=== PATIENT | female | born 1995 | race Caucasian/White ===

== ENCOUNTER 2016-10-01 15:14 | Emergency (ER) | payer OTHER ==
[2016-10-01] MEDS ORDERED: ACETAMINOPHEN 325 MG TABLET PO STA (16:16)
[2016-10-01] MEDS ORDERED: ACETAMINOPHEN 325 MG TABLET PO ONE (16:18)
[2016-10-01] MEDS ORDERED: RHO(D) IMMUNE GLOBULIN 300 MCG SYRINGE IM ONE (17:54)
== END 2016-10-01 19:17 | disposition home or self-care (01) ==
DX: O03.9 Complete or unspecified spontaneous abortion without complication (principal)
CPT/HCPCS: 36415; 76801; 76817; 84702; 86900; 86901; 96372; 99283; 99284; A9270

== ENCOUNTER 2016-11-08 01:33 | Emergency (ER) | payer OTHER | END 2016-11-08 03:01 | disposition home or self-care (01) | DX: S09.90XA Unspecified injury of head, initial encounter (principal); W17.89XA Other fall from one level to another, initial encounter; Y92.019 Unspecified place in single-family (private) house as the place of occurrence of the external cause ==

== ENCOUNTER 2018-04-26 19:12 | Emergency (ER) | payer OTHER ==
[2018-04-26 19:24] VITALS: BP 125/71
[2018-04-26] MEDS ORDERED: HYDROcod/ACET 5/325 Prepack 4 PO STA (20:10)
[2018-04-26] MEDS ORDERED: predniSONE 20 MG TABLET PO STA (20:10)
--- NOTE | 2018-04-26 20:12 | ED Physician Documentation ---
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 She has had back pain before but this is worse. It radiates with a burning down the left leg into the thigh but not further. She denies weakness, numbness, or tingling in that leg or the saddle area. No fevers. 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) - Past Surgical History Past Surgical History: Yes General: Appendectomy - Present Medications Home Medications: Ambulatory Orders Medication Instructions Recorded Confirmed Hydrocodone/Acetaminophen 1 - 2 each PO Q6H PRN #14 tablet 04/26/18 [Hydrocodon-Acetaminophen 5-325] predniSONE [Deltasone] 20 mg PO [id number] #21 tab 04/26/18 - Allergies Allergies/Adverse Reactions: Allergies Allergy/AdvReac Type Severity Reaction Status Date / Time No Known Drug Allergies Allergy Verified 10/01/16 15:26 - Social History Does the pt smoke?: No Smoking Status: Never smoker Does the pt drink ETOH?: No Does the pt have substance abuse?: Yes - Immunizations Immunizations are current?: Yes - POLST Patient has POLST: No PD ED PE NORMAL - Vitals Vital signs reviewed: Yes - General General: Alert and oriented X 3, No acute distress - Back Back: No CVA TTP, No spinal TTP - Extremities Extremities: Other (She has diminished but not absent sensation over the medial left calf with a diminished but not absent patellar reflex. She has equal Achilles reflexes and is slightly weak in plantarflexion of the left foot.) - Neuro Neuro: Alert and oriented X 3, Normal speech Results - Vitals Vitals: Vital Signs - 24 hr 04/26/18 19:18 Temperature 36.9 C Heart Rate 68 Respiratory 16 Rate Blood Pressure 125/71 O2 Saturation 99 Oxygen O2 Source Room air PD MEDICAL DECISION MAKING - Sepsis Event Vital Signs: Vital Signs - 24 hr 04/26/18 19:18 Temperature 36.9 C Heart Rate 68 Respiratory 16 Rate Blood Pressure 125/71 O2 Saturation 99 Oxygen O2 Source Room air Departure - Departure Disposition: Home, Self Care Clinical Impression: Lumbar radiculopathy Condition: Good Record reviewed to determine appropriate education?: Yes Instructions: ED Sciatica Prescriptions: Hydrocodone/Acetaminophen [Hydrocodon-Acetaminophen 5-325] 1 - 2 each PO Q6H PRN #14 tablet PRN Reason: pain predniSONE [Deltasone] 20 mg PO [id number] #21 tab Comments: [place], consideration for physical therapy. Return for new or worsening symptoms. Do not drink or drive while taking narcotic pain medication. Note that many narcotic pain relievers also contain Tylenol/acetaminophen. Please ensure that your total dose of acetaminophen from all sources does not exceed 3 g (3000 mg) per day. You may get constipated while on this medication. Take a stool softener such as Colace twice a day while you are on it. Also add an [id number] laxative such as senna or MiraLAX on any day that you do not have a bowel movement. If you received a narcotic pain medication or sedative while in the emergency department, do not drive for the next 24 hours. Forms: Activity restrictions
== END 2018-04-26 20:28 | disposition home or self-care (01) ==
LOC: ED 19:12
DX: M54.16 Radiculopathy, lumbar region (principal); X50.0XXA Overexertion from strenuous movement or load, initial encounter; Y99.0 Civilian activity done for income or pay
CPT/HCPCS: 99283; J7512

== ENCOUNTER 2018-08-30 01:46 | Emergency (ER) | payer OTHER ==
[2018-08-30] MEDS ORDERED: SODIUM CHLORIDE 0.9% 1,000 ML IV ONE (01:56)
[2018-08-30] MEDS ORDERED: ACETAMINOPHEN 500 MG TABLET PO STA (01:56)
[2018-08-30 02:21] LABS: BASOPHILS # (AUTO) 0.1 10^3/uL (0.0-0.1); BASOPHILS % (AUTO) 0.5 %; EOSINOPHILS # (AUTO) 0.1 10^3/uL (0.0-0.7); EOSINOPHILS % (AUTO) 0.8 %; HGB - HEMOGLOBIN 12.7 g/dL (12.0-16.0); LYMPHOCYTES % (AUTO) 17.5 %; MEAN CORPUSCULAR HEMOGLOBIN 30.7 pg (27.0-31.0); MEAN CORPUSCULAR HGB CONC 33.6 g/dL (32.0-36.0); MEAN CORPUSCULAR VOLUME 91.3 fL (81.0-99.0); MEAN PLATELET VOLUME 8.6 fL (7.9-10.8); MONOCYTES # (AUTO) 0.5 10^3/uL (0.0-1.0); MONOCYTES % (AUTO) 4.1 %; NEUTROPHILS # (AUTO) 8.6 10^3/uL (1.5-6.6); NEUTROPHILS % (AUTO) 77.1 %; PLT - PLATELET COUNT 223 10^3/uL (130-450); RED BLOOD COUNT 4.13 10^6/uL (4.20-5.40); WHITE BLOOD COUNT 11.1 x10^3/uL (4.8-10.8)
[2018-08-30 02:29] LABS: BILIRUBIN,URINE NEGATIVE (NEGATIVE); GLUCOSE, URINE (UA) NEGATIVE (NEGATIVE); KETONES,URINE (UA) NEGATIVE (NEGATIVE); LEUKOCYTE ESTERASE, URINE TRACE (NEGATIVE); NITRITE,URINE NEGATIVE (NEGATIVE); OCCULT BLOOD,URINE NEGATIVE (NEGATIVE); PROTEIN,URINE NEGATIVE (NEGATIVE); UROBILINOGEN,URINE 0.2 (NORMAL) E.U./dL (NORMAL)
[2018-08-30 02:33] LABS: CLARITY,URINE CLEAR (CLEAR)
[2018-08-30 02:33] LABS: ALBUMIN 3.3 g/dL (3.2-5.5); BILIRUBIN,TOTAL 0.6 mg/dL (0.2-1.0); CALCIUM 8.7 mg/dL (8.5-10.3); CREATININE 0.6 mg/dL (0.4-1.0); TOTAL PROTEIN 6.7 g/dL (6.7-8.2)
[2018-08-30 02:39] LABS: RBC,URINE 0-5 /HPF (0-5); SQUAMOUS EPITHELIAL CELL,UR MOD Squamous (<= Few)
[2018-08-30 02:40] LABS: BACTERIA,URINE Rare /HPF (None Seen)
--- NOTE | 2018-08-30 03:14 | ED Physician Documentation ---
History of Present Illness - Stated complaint Stated Complaint: FEMALE ,17W - Chief complaint Chief Complaint: Abd Pain - Additonal information Additional information: 23-year-old female presents the emergency department with lower abdominal cramping. The patient reports being 17 weeks , the patient's had a normal ultrasound showing an intrauterine . This evening the patient reports lower abdominal cramping which she feels is similar to contractions. Presently the cramping has greatly improved. The patient is denying vaginal bleeding or vaginal discharge or a isaac of fluid. The patient denies any focal area of abdominal pain. Presently her symptoms are much improved. No other associated symptoms Review of Systems Constitutional: denies: Fever, Chills Eyes: denies: Discharge Ears: denies: Ear pain Throat: denies: Sore throat Cardiac: denies: Chest pain / pressure Respiratory: denies: Dyspnea, Cough GI: reports: Abdominal Pain. 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) - Past Surgical History Past Surgical History: Yes General: Appendectomy - Present Medications Home Medications: Ambulatory Orders Medication Instructions Recorded Confirmed Nitrofurantoin Monohyd/M-Cryst 100 mg PO BID #10 capsule 08/04/18 [Macrobid 100 mg Capsule] Pnv95/Ferrous Fumarate/FA 1 each PO 08/04/18 [ Tablet] - Allergies Allergies/Adverse Reactions: Allergies Allergy/AdvReac Type Severity Reaction Status Date / Time No Known Drug Allergies Allergy Verified 10/01/16 15:26 - Social History Does the pt smoke?: No Smoking Status: Never smoker Does the pt drink ETOH?: No Does the pt have substance abuse?: Yes - Immunizations Immunizations are current?: Yes - POLST Patient has POLST: No PD ED PE NORMAL - General General: Alert and oriented X 3, No acute distress - HEENT HEENT: Atraumatic, PERRL, EOMI, Ears normal - Neck Neck: Supple, no meningeal sign - Cardiac Cardiac: RRR, Strong equal pulses - Respiratory Respiratory: No respiratory distress - Abdomen Abdomen: Soft, Non tender, Non distended - Derm Derm: Normal color - Extremities Extremities: No deformity - Neuro Neuro: Alert and oriented X 3, Normal speech - Psych Psych: Normal affect Results - Vitals Vitals: Vital Signs - 24 hr 08/30/18 01:50 Temperature 36.3 C L Heart Rate 78 Respiratory 13 Rate Blood Pressure 106/63 O2 Saturation 100 Oxygen O2 Source Room air - Labs Labs: Laboratory Tests 08/30/18 08/30/18 08/30/18 02:10 02:10 02:24 WBC 11.1 H RBC 4.13 L Hgb 12.7 Hct 37.7 MCV 91.3 MCH 30.7 MCHC 33.6 RDW 14.0 Plt Count 223 MPV 8.6 Neut # (Auto) 8.6 H Lymph # (Auto) 2.0 [place] # (Auto) 0.5 Eos # (Auto) 0.1 Baso # (Auto) 0.1 Absolute Nucleated RBC 0.00 Nucleated RBC % 0.0 Sodium 135 Potassium 3.5 Chloride 104 Carbon Dioxide 21 Anion Gap 10.0 BUN 12 Creatinine 0.6 Estimated GFR (MDRD) 124 Glucose 86 Calcium 8.7 Total Bilirubin 0.6 AST 16 ALT 11 Alkaline Phosphatase 63 Total Protein 6.7 Albumin 3.3 Globulin 3.4 Albumin/Globulin Ratio 1.0 Lipase 32 Urine Color YELLOW Urine Clarity CLEAR Urine pH 7.0 Ur Specific [place] 1.025 Urine Protein NEGATIVE Urine Glucose (UA) NEGATIVE Urine Ketones NEGATIVE Urine Occult Blood NEGATIVE Urine Nitrite NEGATIVE Urine Bilirubin NEGATIVE Urine Urobilinogen 0.2 (NORMAL) Ur Leukocyte Esterase TRACE H Urine RBC 0-5 Urine WBC 4-5 Ur Squamous Epith Cells MOD Squamous H Urine Bacteria Rare Ur Microscopic Review INDICATED Urine Culture Comments NOT INDICATED PD MEDICAL DECISION MAKING - ED course ED course: The patient has no focal area of abdominal pain to suggest appendicitis, diverticulitis or acute cholecystitis or pyelonephritis. The patient's lab work does not show any significant abnormality. The patient is having no vaginal bleeding or discharge at this point. The patient had a reassuring heart tones which were in the 140s. The patient's symptoms are under much better control. 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 I discussed warning signs and recommended returning for any worsening or any concerns. Departure - Departure Disposition: 01 Home, Self Care Clinical Impression: Abdominal cramping affecting Condition: Good Instructions: ED Abdominal Pain Unkn Cause Follow-Up: LEVI King [Provider Group] - Within 3 Days Comments: Please return to the emergency department for worsening symptoms or any concerns
[2018-08-30 03:18] VITALS: BP 112/68
== END 2018-08-30 03:19 | disposition home or self-care (01) ==
LOC: ED 01:46
DX: O26.892 Other specified pregnancy related conditions, second trimester (principal); Z3A.17 17 weeks gestation of pregnancy; R10.30 Lower abdominal pain, unspecified
CPT/HCPCS: 36415; 80053; 81001; 83690; 85025; 96360; 99283; A9270; 81003; 87086

== ENCOUNTER 2019-04-13 09:57 | Inpatient (IN) | payer OTHER ==
[2019-04-13 10:14] LABS: BILIRUBIN,URINE NEGATIVE (NEGATIVE); GLUCOSE, URINE (UA) NEGATIVE (NEGATIVE); KETONES,URINE (UA) NEGATIVE (NEGATIVE); LEUKOCYTE ESTERASE, URINE SMALL (NEGATIVE); NITRITE,URINE NEGATIVE (NEGATIVE); OCCULT BLOOD,URINE NEGATIVE (NEGATIVE); PROTEIN,URINE NEGATIVE (NEGATIVE); UROBILINOGEN,URINE 0.2 (NORMAL) E.U./dL (NORMAL)
[2019-04-13 10:19] LABS: HCG UR QUAL NEGATIVE
[2019-04-13 10:19] LABS: CLARITY,URINE HAZY (CLEAR)
[2019-04-13 10:29] LABS: RBC,URINE 0-5 /HPF (0-5); SQUAMOUS EPITHELIAL CELL,UR MOD Squamous (<= Few)
[2019-04-13 10:30] LABS: BACTERIA,URINE Few /HPF (None Seen)
[2019-04-13 13:09] LABS: BASOPHILS # (AUTO) 0.1 10^3/uL (0.0-0.1); BASOPHILS % (AUTO) 0.3 %; EOSINOPHILS # (AUTO) 0.1 10^3/uL (0.0-0.7); EOSINOPHILS % (AUTO) 0.4 %; HGB - HEMOGLOBIN 13.6 g/dL (12.0-16.0); LYMPHOCYTES # (AUTO) 0.5 10^3/uL (1.5-3.5); LYMPHOCYTES % (AUTO) 2.7 %; MEAN CORPUSCULAR HEMOGLOBIN 30.6 pg (27.0-31.0); MEAN CORPUSCULAR HGB CONC 33.8 g/dL (32.0-36.0); MEAN CORPUSCULAR VOLUME 90.3 fL (81.0-99.0); MEAN PLATELET VOLUME 9.9 fL (7.9-10.8); MONOCYTES # (AUTO) 0.6 10^3/uL (0.0-1.0); MONOCYTES % (AUTO) 3.1 %; NEUTROPHILS # (AUTO) 17.6 10^3/uL (1.5-6.6); PLT - PLATELET COUNT 246 10^3/uL (130-450); RED BLOOD COUNT 4.45 10^6/uL (4.20-5.40); RED CELL DISTRIBUTION WIDTH 13.2 % (12.0-15.0); WHITE BLOOD COUNT 18.9 x10^3/uL (4.8-10.8)
[2019-04-13] MEDS ORDERED: SODIUM CHLORIDE 0.9% 1,000 ML IV ONE ×2 (13:43→15:59)
[2019-04-13] MEDS ORDERED: ONDANSETRON 4 MG/2 ML VIAL IVP STA (13:43)
[2019-04-13] MEDS ORDERED: MORPHINE 2 MG/ML CARPUJECT IVP STA ×2 (13:43→16:01)
--- NOTE | 2019-04-13 13:46 | ED Physician Documentation ---
History of Present Illness - Stated complaint Stated Complaint: LOWER ABD PX - Chief complaint Chief Complaint: Abd Pain - Additonal information Additional information: This is a 23-year-old female who presents with abdominal pain fever nausea and vomiting. Patient states that this morning she began having moderate to severe suprapubic pain which radiates to her right flank and her right upper quadrant. She also had some pain with urination. She is nauseated she vomited once. She had an IUD placed 2 weeks ago, this is also the time of her last menstrual period. She states that she had a fever at home to 102 F prior to arrival. S he is sexually active with her only and denies concern for sexual transmitted infection. She has had copious some yellow vaginal discharge, which she was told was normal after IUD placement. She denies any chest pain or shortness of breath. She thinks she has had an appendectomy as a child. 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) - Past Surgical History Past Surgical History: Yes General: Appendectomy - Present Medications Home Medications: Ambulatory Orders Medication Instructions Recorded Confirmed Nitrofurantoin Monohyd/M-Cryst 100 mg PO BID #10 capsule 08/04/18 [Macrobid 100 mg Capsule] Pnv95/Ferrous Fumarate/FA 1 each PO 08/04/18 [ Tablet] - Allergies Allergies/Adverse Reactions: Allergies Allergy/AdvReac Type Severity Reaction Status Date / Time doxycycline AdvReac Intermediate Itching Verified 04/14/19 07:21 - Social History Does the pt smoke?: No Smoking Status: Never smoker Does the pt drink ETOH?: No Does the pt have substance abuse?: Yes - Immunizations Immunizations are current?: Yes - POLST Patient has POLST: No PD ED PE NORMAL - Vitals Vital signs reviewed: Yes - General General: Alert and oriented X 3, Other (Mildly uncomfortable appearing.) - HEENT HEENT: PERRL - Cardiac Cardiac: No murmur, Other (Tachycardic, regular rhythm.) - Respiratory Respiratory: Clear bilaterally - Abdomen Abdomen: Other (Soft, tender to palpation over the suprapubic and bilateral lower quadrants, as well as in the right upper quadrant. No left upper quadrant tenderness) - Female Female : Other (From the cervix strings from the IUD are visible. There is copious yellow mucopurulent discharge from the cervix. Patient has tenderness with cervical motion.) - Derm Derm: Warm and dry - Extremities Extremities: No deformity - Neuro Neuro: Alert and oriented X 3 - Psych Psych: Normal mood, Normal affect Results - Vitals Vitals: Vital Signs - 24 hr 04/13/19 04/13/19 04/13/19 12:53 15:20 16:03 Temperature 38.3 C H 37.4 C Heart Rate 120 H 113 H 77 Respiratory 16 16 16 Rate Blood Pressure 111/83 H 122/80 127/82 H O2 Saturation 100 99 95 04/13/19 16:16 Temperature 100.9 C H Heart Rate 128 H Respiratory 18 Rate Blood Pressure 121/69 O2 Saturation 100 Oxygen O2 Source Room air - Labs Labs: Microbiology 04/13/19 15:05 Wet Prep - Final Genital - Cervix Laboratory Tests 04/13/19 04/13/19 04/13/19 10:02 10:15 13:05 WBC 18.9 H RBC 4.45 Hgb 13.6 Hct 40.2 MCV 90.3 MCH 30.6 MCHC 33.8 RDW 13.2 Plt Count 246 MPV 9.9 Neut # (Auto) 17.6 H Lymph # (Auto) 0.5 L [place] # (Auto) 0.6 Eos # (Auto) 0.1 Baso # (Auto) 0.1 Absolute Nucleated RBC 0.00 Nucleated RBC % 0.0 Sodium Potassium Chloride Carbon Dioxide Anion Gap BUN Creatinine Estimated GFR (MDRD) Glucose Lactic Acid Calcium Total Bilirubin AST ALT Alkaline Phosphatase Total Protein Albumin Globulin Albumin/Globulin Ratio Lipase Urine Color YELLOW Urine Clarity HAZY Urine pH 6.0 Ur Specific [place] 1.020 1.020 Urine Protein NEGATIVE Urine Glucose (UA) NEGATIVE Urine Ketones NEGATIVE Urine Occult Blood NEGATIVE Urine Nitrite NEGATIVE Urine Bilirubin NEGATIVE Urine Urobilinogen 0.2 (NORMAL) Ur Leukocyte Esterase SMALL H Urine RBC 0-5 Urine WBC 4-5 Ur Squamous Epith Cells MOD Squamous H Urine Bacteria Few Ur Microscopic Review INDICATED Urine Culture Comments NOT INDICATED Urine HCG, Qual NEGATIVE Chlam trachomat DNA PCR N.gonorrhoeae DNA (PCR) T. vaginalis (PCR) 04/13/19 04/13/19 04/13/19 13:05 15:05 16:15 WBC RBC Hgb Hct MCV MCH MCHC RDW Plt Count MPV Neut # (Auto) Lymph # (Auto) [place] # (Auto) Eos # (Auto) Baso # (Auto) Absolute Nucleated RBC Nucleated RBC % Sodium 135 Potassium 3.8 Chloride 102 Carbon Dioxide 25 Anion Gap 8.0 BUN 8 Creatinine 0.6 Estimated GFR (MDRD) 124 Glucose 119 H Lactic Acid 1.2 Calcium 9.2 Total Bilirubin 1.1 H AST 16 ALT 14 Alkaline Phosphatase 96 Total Protein 7.7 Albumin 4.2 Globulin 3.5 Albumin/Globulin Ratio 1.2 Lipase 25 Urine Color Urine Clarity Urine pH Ur Specific [place] Urine Protein Urine Glucose (UA) Urine Ketones Urine Occult Blood Urine Nitrite Urine Bilirubin Urine Urobilinogen Ur Leukocyte Esterase Urine RBC Urine WBC Ur Squamous Epith Cells Urine Bacteria Ur Microscopic Review Urine Culture Comments Urine HCG, Qual Chlam trachomat DNA PCR NEGATIVE N.gonorrhoeae DNA (PCR) NEGATIVE T. vaginalis (PCR) NEGATIVE - Rads (name of study) CT abd/pelvis Radiology: Other PD MEDICAL DECISION MAKING - ED course Complexity details: considered differential (Appendicitis, UTI, pyelonephritis, PID, STI, enteritis, abscess, TOA, uterine irritation from IUD) ED course: Pt is tachycardic on arrival. Labs from triage reveal a WBC of ~19. She is quite tender in her lower abdomen, she also has some RUQ tenderness. Patient was given morhphine for pain control, 2L NS bolus was given. UA equivocal for infection with 4-5 WBC, not convincing as the source of her infection. CT shows no clear cause of her pain. Pelvic exam shows copious mucopurulent discharge and wet prep shows many WBCs. Given her recent IUD placement, labs, and exams, she appears to have PID. She did become febrile while in the ED, blood cultures were drawn. No signs of shock, her BP has been excellent throughout her stay. Dr. Betts of OB was called and evaluated and admitted patient for further evaluation, IV abx, and IUD removal. Pelvic US was ordered as well to better assess for TOA and uterine contents. Patient was updated with the plan of care and admitted to the hospital. Departure - Departure Disposition: [facility] DC/Xfer Clinical Impression: Pelvic inflammatory disease (PID), Acute pelvic inflammatory disease Condition: Stable Discharge Date/Time: 04/13/19 17:46
[2019-04-13 13:51] LABS: ALBUMIN 4.2 g/dL (3.2-5.5); ALBUMIN/GLOBULIN RATIO 1.2 (1.0-2.2); BILIRUBIN,TOTAL 1.1 mg/dL (0.2-1.0); CALCIUM 9.2 mg/dL (8.5-10.3); CREATININE 0.6 mg/dL (0.4-1.0); TOTAL PROTEIN 7.7 g/dL (6.7-8.2)
[2019-04-13] MEDS ORDERED: IOVERSOL 320 100 ML VIAL IVP ONE ×2 (14:06→14:16)
--- NOTE | 2019-04-13 15:04 | CT Report ---
Reason: Lower abd/flank and RUQ pain, WBC 19, recent IUD Procedure Date: 04/13/2019 Accession Number: [id number] / [id number] Procedure: CT - Abdomen/Pelvis W CPT Code: FULL RESULT: EXAM: CT ABDOMEN AND PELVIS EXAM DATE: 04/13/2019 02:12 PM. CLINICAL HISTORY: Lower abd/flank and RUQ pain, WBC 19, recent IUD. COMPARISONS: None. TECHNIQUE: Routine helical CT imaging was performed through the abdomen and pelvis. IV contrast: OPTI 320 80ML. Enteric contrast: No. Reconstructions: Coronal and sagittal. In accordance with CT protocol optimization, one or more of the following dose reduction techniques were utilized for this exam: automated exposure control, adjustment of mA and/or KV based on patient size, or use of iterative reconstructive technique. FINDINGS: Lung Bases: Unremarkable. Liver: Normal. No masses. Gallbladder/Bile Ducts: Unremarkable. Spleen: Normal. Pancreas: Normal. Adrenal Glands: Normal. Kidneys: There is mild right hydronephrosis and hydroureter. No stones are seen. There is no significant perinephric stranding. Peritoneal Cavity/Bowel: No dilated or thick-walled bowel is seen. The appendix is not dentally seen; there is no evidence of pericecal inflammation to indicate presence of acute appendicitis. There is a small amount of free fluid within the pelvis. No intraperitoneal free air. There are no enlarged mesenteric or retroperitoneal lymph nodes. Pelvic Organs: Intrauterine device is in place. No significant Pelvic abnormalities are seen. The urinary bladder is normal Vasculature: No aneurysms or other significant abnormality. 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 No acute bony abnormalities are seen. Other: None. IMPRESSION: 1. There is mild right hydronephrosis and hydroureter but no evidence of stones or perinephric stranding. Differential considerations include passed stone, reflux, or urinary tract infection. 2. There is no evidence of appendicitis or bowel obstruction. 3. Intrauterine device is in place. No significant adnexal abnormalities are seen. Small amount of free fluid within the pelvis is nonspecific but may be physiologic. RADIA
[2019-04-13] MEDS ORDERED: oxyCODONE 5 MG TABLET PO PRN (17:05)
[2019-04-13] MEDS ORDERED: GENTAMICIN PER PHARMACY (DO NOT LOAD) IV STA (17:41)
[2019-04-13] MEDS ORDERED: GENTAMICIN 80MG VIAL 400 MG in SODIUM CHLORIDE 0.9% 100ML 100 ML IV SCH ×4 (18:00)
[2019-04-13] MEDS: LACTATED RINGERS 1,000 ML IV SCH (18:20)
[2019-04-13] MEDS ORDERED: SODIUM CHLORIDE 0.9% MINIBAG 100 ML IV ONE (18:22)
[2019-04-13] MEDS ORDERED: SODIUM CHLORIDE FLUSH 0.9% 10 ML SYRINGE ONE ×2 (18:22→18:25)
[2019-04-13] MEDS: oxyCODONE 5 MG TABLET PO PRN ×2 (18:25→22:45)
[2019-04-13] MEDS: CEFOTETAN DISODIUM 2 GM in SODIUM CHLORIDE 0.9% MINIBAG 100 ML IV SCH (18:25)
[2019-04-13] MEDS: KETOROLAC 30 MG/ML VIAL IVP SCH ×2 (18:26→23:57)
[2019-04-13] MEDS: ACETAMINOPHEN 500 MG TABLET PO SCH (19:29)
[2019-04-13] MEDS: DOXYCYCLINE 100 MG TABLET PO SCH (19:30)
--- NOTE | 2019-04-13 20:14 | PREOP HISTORY & PHYSICAL ---
DATE OF SERVICE: 04/13/2019 Physician: Warner Betts MD IDENTIFICATION: Patient is a 23-year-old G4, P2, AB2 female who delivered on 01/11. CHIEF COMPLAINT: Severe abdominal pain. HISTORY OF PRESENT ILLNESS: Patient is awakened last evening with lower abdominal discomfort. It became progressively worse with time. She states that she was awakened again at 4:00 this morning with pain roughly 8/10. She states it is worse with motion, tender to touch and walking. She developed chills and fevers. Her temperature at 4:00 this morning was 102.3. She currently feels better. She has received pain medication. She has had an appendectomy done at the age of 14. She had an IUD placed roughly 2 weeks ago, a Paragard. PAST MEDICAL HISTORY: Denies any hypertensive, diabetic or pulmonary disease. PAST SURGICAL HISTORY: Positive for an appendectomy, as well as a ganglion cyst removed from her right wrist. ALLERGIES: NONE KNOWN. CURRENT MEDICATIONS: vitamins. HABITS: Patient does tetrahydrocannabinol occasionally. Last dose was roughly 2 months ago. SOCIAL HISTORY: Patient is to an active duty [place]. 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 FAMILY HISTORY: Positive for grandfather, skin cancer, diabetes, as well as hypertension. She also has several aunts with breast and ovarian cancer. REVIEW OF SYSTEMS: HEENT: Patient wears glasses. Denies any problems with her hearing, sense of smell or taste. Denies any cardiac or pulmonary disease. Abdomen as noted in the HPI. MUSCULOSKELETAL: Negative. NEUROLOGIC: Negative. PHYSICAL EXAMINATION GENERAL: Well-developed, well-nourished female who is warm to touch. VITAL SIGNS: Temperature in the hospital has been 100.9. Her pulse was 120, respirations 16, saturating 100%. HEENT: Pupils are equal, round. Extraocular muscles are intact. Thyroid is not palpably enlarged. Mouth is clear. HEART: Regular rate and rhythm without murmurs. LUNGS: Lung [place] are clear without rales or wheezes. BACK: There is some generalized tenderness. ABDOMEN: Shows good bowel sounds. There is tenderness in the lower pelvis. IMAGING: Patient has had a CT, which was relayed to me as not showing any masses or fluid collections at this time. The appendix surgically absent per history. IMPRESSION: A 23-year-old G4, P2, recently delivered female with a history of just recently placed intrauterine device. My suspicion at this time is she has pelvic inflammatory disease or endometritis. PLAN: At this time, we will remove her IUD. We will place her on IV antibiotics, cefotetan 2 grams q.12 hours, doxycycline 100 mg p.o. q.[address] also place her on gentamicin. This will be dosed by pharmacy. We will administer pain medications as needed. Will need to have 24 to 48 hours of being afebrile. TD: 04/13/2019 17:27 MTDD
[2019-04-13] MEDS: DOCUSATE SODIUM 100 MG CAPSULE PO SCH (21:21)
[2019-04-13 23:34] LABS: TRICHOMONAS VAGINALIS DNA NEGATIVE (NEGATIVE)
[2019-04-14] MEDS: LACTATED RINGERS 1,000 ML IV SCH ×3 (02:24→12:26)
[2019-04-14] MEDS: ACETAMINOPHEN 500 MG TABLET PO SCH ×3 (02:27→18:36)
[2019-04-14] MEDS: oxyCODONE 5 MG TABLET PO PRN ×3 (02:46→20:13)
[2019-04-14] MEDS ORDERED: SODIUM CHLORIDE 0.9% MINIBAG 100 ML IV ONE (05:00)
[2019-04-14] MEDS: DOXYCYCLINE 100 MG TABLET PO SCH (05:03)
[2019-04-14 05:08] LABS: BASOPHILS % (AUTO) 0.3 %; EOSINOPHILS # (AUTO) 0.1 10^3/uL (0.0-0.7); EOSINOPHILS % (AUTO) 0.5 %; HGB - HEMOGLOBIN 11.5 g/dL (12.0-16.0); LYMPHOCYTES # (AUTO) 2.1 10^3/uL (1.5-3.5); LYMPHOCYTES % (AUTO) 19.3 %; MEAN CORPUSCULAR HEMOGLOBIN 30.3 pg (27.0-31.0); MEAN CORPUSCULAR HGB CONC 32.6 g/dL (32.0-36.0); MEAN CORPUSCULAR VOLUME 93.1 fL (81.0-99.0); MEAN PLATELET VOLUME 10.1 fL (7.9-10.8); MONOCYTES # (AUTO) 0.8 10^3/uL (0.0-1.0); MONOCYTES % (AUTO) 7.5 %; NEUTROPHILS # (AUTO) 7.7 10^3/uL (1.5-6.6); NEUTROPHILS % (AUTO) 71.9 %; PLT - PLATELET COUNT 203 10^3/uL (130-450); RED BLOOD COUNT 3.79 10^6/uL (4.20-5.40); RED CELL DISTRIBUTION WIDTH 13.7 % (12.0-15.0); WHITE BLOOD COUNT 10.7 x10^3/uL (4.8-10.8)
[2019-04-14] MEDS: CEFOTETAN DISODIUM 2 GM in SODIUM CHLORIDE 0.9% MINIBAG 100 ML IV SCH (05:55)
[2019-04-14] MEDS: KETOROLAC 30 MG/ML VIAL IVP SCH ×4 (06:12→23:38)
--- NOTE | 2019-04-14 07:21 | PROVIDER PROGRESS NOTE ---
Subjective - Prog Note Date Prog Note Date: 04/14/19 Prog Note Time: 07:18 - Subjective Pt reports feeling: Improved (Pain 2/10. C/O itching with Doxy.) Objective - Vital Signs/Intake & Output Reviewed Vital Signs: Yes Vital Signs: Vital Signs x48h Temp Pulse Resp BP Pulse Ox 04/14/19 05:00 36.7 C 64 16 110/44 L 98 04/14/19 00:13 36.8 C 77 16 99/69 98 Intake & Output: Intake & Output 04/11/19 04/12/19 04/13/19 04/14/19 23:59 23:59 23:59 23:59 Intake Total 2510 2100 Output Total 1 500 Balance 2509 1600 - Objective General Appearance: positive: No acute distress, Alert Respiratory: positive: Chest non-tender, No respiratory distress, Breath sounds nml Cardiovascular: positive: Regular rate & rhythm, No murmur, No gallop Abdomen: positive: No organomegaly, Nml bowel sounds, No distention, Tenderness (supra pubicl with out rebound) Back: negative: CVA tenderness (R), CVA tenderness (L) Extremities: negative: Calf tenderness, Db's sign/cords - Lab Results Fish Bones: 04/14/19 04:40 04/13/19 13:05 Other Labs: Lab Results x24hrs 04/14/19 04/14/19 04/13/19 Range/Units 04:40 03:00 16:15 WBC 10.7 (4.8-10.8) x10^3/uL RBC 3.79 L (4.20-5.40) 10^6/uL Hgb 11.5 L (12.0-16.0) g/dL Hct 35.3 L (37.0-47.0) % MCV 93.1 (81.0-99.0) fL MCH 30.3 (27.0-31.0) pg MCHC 32.6 (32.0-36.0) g/dL RDW 13.7 (12.0-15.0) % Plt Count 203 (130-450) 10^3/uL MPV 10.1 (7.9-10.8) fL Neut # (Auto) 7.7 H (1.5-6.6) 10^3/uL Lymph # (Auto) 2.1 (1.5-3.5) 10^3/uL [place]verse # (Auto) 0.8 (0.0-1.0) 10^3/uL Eos # (Auto) 0.1 (0.0-0.7) 10^3/uL Baso # (Auto) 0.0 (0.0-0.1) 10^3/uL Absolute Nucleated RBC 0.00 x10^3/uL Nucleated RBC % 0.0 /100WBC Sodium (135-145) mmol/L Potassium (3.5-5.0) mmol/L Chloride (101-111) mmol/L Carbon Dioxide (21-32) mmol/L Anion Gap (6-13) BUN (6-20) mg/dL Creatinine (0.4-1.0) mg/dL Estimated GFR (MDRD) (>89) Glucose (70-100) mg/dL Lactic Acid 1.2 (0.5-2.2) mmol/L Calcium (8.5-10.3) mg/dL Total Bilirubin (0.2-1.0) mg/dL AST (10-42) IU/L ALT (10-60) IU/L Alkaline Phosphatase (42-121) IU/L Total Protein (6.7-8.2) g/dL Albumin (3.2-5.5) g/dL Globulin (2.1-4.2) g/dL Albumin/Globulin Ratio (1.0-2.2) Lipase (22-51) U/L Urine Color Urine Clarity (CLEAR) Urine pH (5.0-7.5) PH Ur Specific Jamieson (1.002-1.030) Urine Protein (NEGATIVE) mg/dL Urine Glucose (UA) (NEGATIVE) mg/dL Urine Ketones (NEGATIVE) mg/dL Urine Occult Blood (NEGATIVE) Urine Nitrite (NEGATIVE) Urine Bilirubin (NEGATIVE) Urine Urobilinogen (NORMAL) E.U./dL Ur Leukocyte Esterase (NEGATIVE) Urine RBC (0-5) /HPF Urine WBC (0-5) /HPF Ur Squamous Epith Cells (<= Few) Urine Bacteria (None Seen) /HPF Ur Microscopic Review Urine Culture Comments Urine HCG, Qual Random Gentamicin 3.2 ug/mL Chlam trachomat DNA PCR (NEGATIVE) N.gonorrhoeae DNA (PCR) (NEGATIVE) T. vaginalis (PCR) (NEGATIVE) 04/13/19 04/13/19 04/13/19 Range/Units 15:05 13:05 13:05 WBC 18.9 H (4.8-10.8) x10^3/uL RBC 4.45 (4.20-5.40) 10^6/uL Hgb 13.6 (12.0-16.0) g/dL Hct 40.2 (37.0-47.0) % MCV 90.3 (81.0-99.0) fL MCH 30.6 (27.0-31.0) pg MCHC 33.8 (32.0-36.0) g/dL RDW 13.2 (12.0-15.0) % Plt Count 246 (130-450) 10^3/uL MPV 9.9 (7.9-10.8) fL Neut # (Auto) 17.6 H (1.5-6.6) 10^3/uL Lymph # (Auto) 0.5 L (1.5-3.5) 10^3/uL [place]verse # (Auto) 0.6 (0.0-1.0) 10^3/uL Eos # (Auto) 0.1 (0.0-0.7) 10^3/uL Baso # (Auto) 0.1 (0.0-0.1) 10^3/uL Absolute Nucleated RBC 0.00 x10^3/uL Nucleated RBC % 0.0 /100WBC Sodium 135 (135-145) mmol/L Potassium 3.8 (3.5-5.0) mmol/L Chloride 102 (101-111) mmol/L Carbon Dioxide 25 (21-32) mmol/L Anion Gap 8.0 (6-13) BUN 8 (6-20) mg/dL Creatinine 0.6 (0.4-1.0) mg/dL Estimated GFR (MDRD) 124 (>89) Glucose 119 H (70-100) mg/dL Lactic Acid (0.5-2.2) mmol/L Calcium 9.2 (8.5-10.3) mg/dL Total Bilirubin 1.1 H (0.2-1.0) mg/dL AST 16 (10-42) IU/L ALT 14 (10-60) IU/L Alkaline Phosphatase 96 (42-121) IU/L Total Protein 7.7 (6.7-8.2) g/dL Albumin 4.2 (3.2-5.5) g/dL Globulin 3.5 (2.1-4.2) g/dL Albumin/Globulin Ratio 1.2 (1.0-2.2) Lipase 25 (22-51) U/L Urine Color Urine Clarity (CLEAR) Urine pH (5.0-7.5) PH Ur Specific Jamieson (1.002-1.030) Urine Protein (NEGATIVE) mg/dL Urine Glucose (UA) (NEGATIVE) mg/dL Urine Ketones (NEGATIVE) mg/dL Urine Occult Blood (NEGATIVE) Urine Nitrite (NEGATIVE) Urine Bilirubin (NEGATIVE) Urine Urobilinogen (NORMAL) E.U./dL Ur Leukocyte Esterase (NEGATIVE) Urine RBC (0-5) /HPF Urine WBC (0-5) /HPF Ur Squamous Epith Cells (<= Few) Urine Bacteria (None Seen) /HPF Ur Microscopic Review Urine Culture Comments Urine HCG, Qual Random Gentamicin ug/mL Chlam trachomat DNA PCR NEGATIVE (NEGATIVE) N.gonorrhoeae DNA (PCR) NEGATIVE (NEGATIVE) T. vaginalis (PCR) NEGATIVE (NEGATIVE) 04/13/19 04/13/19 Range/Units 10:15 10:02 WBC (4.8-10.8) x10^3/uL RBC (4.20-5.40) 10^6/uL Hgb (12.0-16.0) g/dL Hct (37.0-47.0) % MCV (81.0-99.0) fL MCH (27.0-31.0) pg MCHC (32.0-36.0) g/dL RDW (12.0-15.0) % Plt Count (130-450) 10^3/uL MPV (7.9-10.8) fL Neut # (Auto) (1.5-6.6) 10^3/uL Lymph # (Auto) (1.5-3.5) 10^3/uL [place]verse # (Auto) (0.0-1.0) 10^3/uL Eos # (Auto) (0.0-0.7) 10^3/uL Baso # (Auto) (0.0-0.1) 10^3/uL Absolute Nucleated RBC x10^3/uL Nucleated RBC % /100WBC Sodium (135-145) mmol/L Potassium (3.5-5.0) mmol/L Chloride (101-111) mmol/L Carbon Dioxide (21-32) mmol/L Anion Gap (6-13) BUN (6-20) mg/dL Creatinine (0.4-1.0) mg/dL Estimated GFR (MDRD) (>89) Glucose (70-100) mg/dL Lactic Acid (0.5-2.2) mmol/L Calcium (8.5-10.3) mg/dL Total Bilirubin (0.2-1.0) mg/dL AST (10-42) IU/L ALT (10-60) IU/L Alkaline Phosphatase (42-121) IU/L Total Protein (6.7-8.2) g/dL Albumin (3.2-5.5) g/dL Globulin (2.1-4.2) g/dL Albumin/Globulin Ratio (1.0-2.2) Lipase (22-51) U/L Urine Color YELLOW Urine Clarity HAZY (CLEAR) Urine pH 6.0 (5.0-7.5) PH Ur Specific Jamieson 1.020 1.020 (1.002-1.030) Urine Protein NEGATIVE (NEGATIVE) mg/dL Urine Glucose (UA) NEGATIVE (NEGATIVE) mg/dL Urine Ketones NEGATIVE (NEGATIVE) mg/dL Urine Occult Blood NEGATIVE (NEGATIVE) Urine Nitrite NEGATIVE (NEGATIVE) Urine Bilirubin NEGATIVE (NEGATIVE) Urine Urobilinogen 0.2 (NORMAL) (NORMAL) E.U./dL Ur Leukocyte Esterase SMALL H (NEGATIVE) Urine RBC 0-5 (0-5) /HPF Urine WBC 4-5 (0-5) /HPF Ur Squamous Epith Cells MOD Squamous H (<= Few) Urine Bacteria Few (None Seen) /HPF Ur Microscopic Review INDICATED Urine Culture Comments NOT INDICATED Urine HCG, Qual NEGATIVE Random Gentamicin ug/mL Chlam trachomat DNA PCR (NEGATIVE) N.gonorrhoeae DNA (PCR) (NEGATIVE) T. vaginalis (PCR) (NEGATIVE) Assessment/Plan - Problem List (1) Acute pelvic inflammatory disease Impression: Pt is responding to antibiotics. probable doxy allergy stop doxy change to clinda 900 q 8 hours.
[2019-04-14] MEDS: CLINDAMYCIN 900 MG/50 ML 50 ML IV SCH ×3 (08:27→23:38)
[2019-04-14] MEDS: LORATADINE 10 MG TABLET PO SCH (08:27)
[2019-04-14] MEDS: LACTOBACILLUS RHAMNOSUS GG CAPSULE PO SCH (08:27)
[2019-04-14] MEDS: DOCUSATE SODIUM 100 MG CAPSULE PO SCH ×2 (08:29→20:14)
[2019-04-14] MEDS ORDERED: SODIUM CHLORIDE FLUSH 0.9% 10 ML SYRINGE ONE (11:45)
[2019-04-14] MEDS ORDERED: LACTATED RINGERS 1,000 ML IV SCH (14:34)
--- NOTE | 2019-04-14 14:36 | PROVIDER PROGRESS NOTE ---
Subjective - Prog Note Date Prog Note Date: 04/14/19 Prog Note Time: 14:35 - Subjective Pt reports feeling: Improved (Pain 2/10 not using narcotics. tylenol and toradol) Objective - Vital Signs/Intake & Output Vital Signs: Vital Signs x48h Temp Pulse Resp BP Pulse Ox 04/14/19 14:00 36.7 C 59 L 18 115/51 L 97 04/14/19 09:00 36.1 C L 61 17 92/47 L 97 Intake & Output: Intake & Output 04/11/19 04/12/19 04/13/19 04/14/19 23:59 23:59 23:59 23:59 Intake Total 2510 4870 Output Total 1 2049 Balance 2509 2820 - Lab Results Fish Bones: 04/14/19 04:40 04/13/19 13:05 Other Labs: Lab Results x24hrs 04/14/19 04/14/19 04/13/19 Range/Units 04:40 03:00 16:15 WBC 10.7 (4.8-10.8) x10^3/uL RBC 3.79 L (4.20-5.40) 10^6/uL Hgb 11.5 L (12.0-16.0) g/dL Hct 35.3 L (37.0-47.0) % MCV 93.1 (81.0-99.0) fL MCH 30.3 (27.0-31.0) pg MCHC 32.6 (32.0-36.0) g/dL RDW 13.7 (12.0-15.0) % Plt Count 203 (130-450) 10^3/uL MPV 10.1 (7.9-10.8) fL Neut # (Auto) 7.7 H (1.5-6.6) 10^3/uL Lymph # (Auto) 2.1 (1.5-3.5) 10^3/uL Sharp # (Auto) 0.8 (0.0-1.0) 10^3/uL Eos # (Auto) 0.1 (0.0-0.7) 10^3/uL Baso # (Auto) 0.0 (0.0-0.1) 10^3/uL Absolute Nucleated RBC 0.00 x10^3/uL Nucleated RBC % 0.0 /100WBC Lactic Acid 1.2 (0.5-2.2) mmol/L Random Gentamicin 3.2 ug/mL Chlam trachomat DNA PCR (NEGATIVE) N.gonorrhoeae DNA (PCR) (NEGATIVE) T. vaginalis (PCR) (NEGATIVE) 04/13/19 Range/Units 15:05 WBC (4.8-10.8) x10^3/uL RBC (4.20-5.40) 10^6/uL Hgb (12.0-16.0) g/dL Hct (37.0-47.0) % MCV (81.0-99.0) fL MCH (27.0-31.0) pg MCHC (32.0-36.0) g/dL RDW (12.0-15.0) % Plt Count (130-450) 10^3/uL MPV (7.9-10.8) fL Neut # (Auto) (1.5-6.6) 10^3/uL Lymph # (Auto) (1.5-3.5) 10^3/uL Sharp # (Auto) (0.0-1.0) 10^3/uL Eos # (Auto) (0.0-0.7) 10^3/uL Baso # (Auto) (0.0-0.1) 10^3/uL Absolute Nucleated RBC x10^3/uL Nucleated RBC % /100WBC Lactic Acid (0.5-2.2) mmol/L Random Gentamicin ug/mL Chlam trachomat DNA PCR NEGATIVE (NEGATIVE) N.gonorrhoeae DNA (PCR) NEGATIVE (NEGATIVE) T. vaginalis (PCR) NEGATIVE (NEGATIVE)
[2019-04-14] MEDS: GENTAMICIN 400 MG in SODIUM CHLORIDE 0.9% 100ML 100 ML IV SCH (18:39)
[2019-04-15] MEDS: oxyCODONE 5 MG TABLET PO PRN ×2 (01:04→08:19)
[2019-04-15] MEDS: ACETAMINOPHEN 500 MG TABLET PO SCH ×3 (02:02→17:19)
[2019-04-15] MEDS: KETOROLAC 30 MG/ML VIAL IVP SCH ×2 (06:08→11:46)
[2019-04-15] MEDS: LACTOBACILLUS RHAMNOSUS GG CAPSULE PO SCH (08:19)
[2019-04-15] MEDS: LORATADINE 10 MG TABLET PO SCH (08:19)
[2019-04-15] MEDS: DOCUSATE SODIUM 100 MG CAPSULE PO SCH (08:19)
[2019-04-15] MEDS: CLINDAMYCIN 900 MG/50 ML 50 ML IV SCH ×2 (08:19→15:51)
[2019-04-15] MEDS ORDERED: POLYETHYLENE GLYCOL 3350 17 GM PACKET PO SCH ×2 (09:00→10:00)
--- NOTE | 2019-04-15 09:24 | PROVIDER PROGRESS NOTE ---
Subjective - Prog Note Date Prog Note Date: 04/15/19 Prog Note Time: :19 - Subjective Pt reports feeling: Improved (Pt C/O abdominal pain 11/17. son steped on her abdomin yesterday.) Objective - Vital Signs/Intake & Output Reviewed Vital Signs: Yes Vital Signs: Vital Signs x48h Temp Pulse Resp BP Pulse Ox 04/15/19 08:00 36.6 C 55 L 18 110/59 L 99 Intake & Output: Intake & Output 04/12/19 04/13/19 04/14/19 04/15/19 23:59 23:59 23:59 23:59 Intake Total 2510 6435.167 1130 Output Total 1 2550 2230 Balance 2509 3885.167 -1100 - Objective General Appearance: positive: No acute distress, Alert Respiratory: positive: Chest non-tender, No respiratory distress, Breath sounds nml Cardiovascular: positive: Regular rate & rhythm, No murmur, No gallop Abdomen: positive: Nml bowel sounds, No distention, Tenderness (mild tenderness over the uterus.) Back: negative: CVA tenderness (R), CVA tenderness (L) Extremities: negative: Calf tenderness, Db's sign/cords - Lab Results Fish Bones: 04/14/19 04:40 04/13/19 13:05 Assessment/Plan - Problem List (1) Acute pelvic inflammatory disease Impression: Pt is responding to antibiotics. she will be 48 hours at 1800. will send home after 1800 hour dose of gent. discharge meds Clinda 450 mg qid 12 days. (total 14 days) RTC one week.
[2019-04-15 09:57] LABS: BASOPHILS % (AUTO) 0.3 %; EOSINOPHILS # (AUTO) 0.1 10^3/uL (0.0-0.7); HGB - HEMOGLOBIN 11.3 g/dL (12.0-16.0); LYMPHOCYTES # (AUTO) 1.5 10^3/uL (1.5-3.5); LYMPHOCYTES % (AUTO) 24.9 %; MEAN CORPUSCULAR HEMOGLOBIN 29.8 pg (27.0-31.0); MEAN CORPUSCULAR HGB CONC 32.5 g/dL (32.0-36.0); MEAN CORPUSCULAR VOLUME 91.8 fL (81.0-99.0); MONOCYTES # (AUTO) 0.5 10^3/uL (0.0-1.0); MONOCYTES % (AUTO) 7.7 %; NEUTROPHILS % (AUTO) 64.8 %; PLT - PLATELET COUNT 196 10^3/uL (130-450); RED BLOOD COUNT 3.79 10^6/uL (4.20-5.40); RED CELL DISTRIBUTION WIDTH 13.8 % (12.0-15.0); WHITE BLOOD COUNT 6.1 x10^3/uL (4.8-10.8)
--- NOTE | 2019-04-15 11:06 | Ultrasound Report ---
Reason: Pelvic pain and likely PID Procedure Date: 04/13/2019 Accession Number: [id number] / [id number] Procedure: US - Pelvic w/Transvag+Doppler Comp CPT Code: FULL RESULT: EXAM: PELVIC ULTRASOUND EXAM DATE: 04/13/2019 06:00 PM. CLINICAL HISTORY: Pelvic pain and likely PID. COMPARISON: ABDOMEN/PELVIS W/ 04/13/2019 2:08 PM. TECHNIQUE: Realtime transabdominal pelvic scan performed to identify the uterus and adnexa and as an overview of other pelvic structures, followed by transvaginal scan to provide greater detail of the uterus and adnexa, with static image documentation. FINDINGS: Uterus: 8.7 x 3.5 x 4.3 cm, volume 68 cc. Anteverted position. Normal overall size. Heterogeneous echotexture and slightly hypervascular myometrium. Masses: None. Endometrium: 7 mm. Small volume of free fluid in the endometrial canal. Cervix: Unremarkable. Right Ovary: 3.2 x 1.7 x 3.2 cm, volume 9 cc. Normal echotexture and blood flow. Follicles up to 1.0 cm transversely. Left Ovary: 3.5 x 1.6 x 2.8 cm, volume 8 cc. Normal echotexture and blood flow. Free Fluid: Trace free fluid in the posterior cul-de-sac.. Other: None. IMPRESSION: Heterogeneous, slightly hypervascular myometrium. Free fluid in the endometrial canal. Findings compatible with PID. RADIA
[2019-04-15] MEDS ORDERED: SODIUM CHLORIDE FLUSH 0.9% 10 ML SYRINGE ONE (11:36)
--- NOTE | 2019-04-15 14:24 | PROVIDER PROGRESS NOTE ---
Subjective - Prog Note Date Prog Note Date: 04/15/19 Prog Note Time: 14:19 - Subjective Pt reports feeling: Improved (pt feels well. pain resolved.) Objective - Vital Signs/Intake & Output Reviewed Vital Signs: Yes Vital Signs: Vital Signs x48h Temp Pulse Resp BP Pulse Ox 04/15/19 08:00 36.6 C 55 L 18 110/59 L 99 Intake & Output: Intake & Output 04/12/19 04/13/19 04/14/19 04/15/19 23:59 23:59 23:59 23:59 Intake Total 2510 6435.167 1730 Output Total 1 2550 2230 Balance 2509 3885.167 -500 - Lab Results Fish Bones: 04/15/19 09:49 04/13/19 13:05 Other Labs: Lab Results x24hrs 04/15/19 Range/Units 09:49 WBC 6.1 (4.8-10.8) x10^3/uL RBC 3.79 L (4.20-5.40) 10^6/uL Hgb 11.3 L (12.0-16.0) g/dL Hct 34.8 L (37.0-47.0) % MCV 91.8 (81.0-99.0) fL MCH 29.8 (27.0-31.0) pg MCHC 32.5 (32.0-36.0) g/dL RDW 13.8 (12.0-15.0) % Plt Count 196 (130-450) 10^3/uL MPV 10.0 (7.9-10.8) fL Neut # (Auto) 4.0 (1.5-6.6) 10^3/uL Lymph # (Auto) 1.5 (1.5-3.5) 10^3/uL [place] # (Auto) 0.5 (0.0-1.0) 10^3/uL Eos # (Auto) 0.1 (0.0-0.7) 10^3/uL Baso # (Auto) 0.0 (0.0-0.1) 10^3/uL Absolute Nucleated RBC 0.00 x10^3/uL Nucleated RBC % 0.0 /100WBC Assessment/Plan - Problem List (1) Acute pelvic inflammatory disease Impression: breast feeding with OK while on clind. Hold until 24 hours after last dose of gentamycin [id number] in clinic 1 week Send home following last dose of gent.
--- NOTE | 2019-04-15 16:55 | Discharge Plan ---
Discharge Plan Problem Reviewed?: Yes Disposition: Home, Self Care Condition: Good Diet: Regular Activity Restrictions: No Restrictions (biscussed breast feeding. pump and dump 24 hours) Shower Restrictions: No Driving Restrictions: No Weight Bearing: Full Weight Instruction Topics: PID, PID Complications No Smoking: If you smoke, Please STOP! Call for help.
[2019-04-15] MEDS: GENTAMICIN 400 MG in SODIUM CHLORIDE 0.9% 100ML 100 ML IV SCH (17:16)
[2019-04-15 18:37] VITALS: BP 119/74
--- NOTE | 2019-04-20 09:43 | DISCHARGE SUMMARY ---
Physician: Warner Betts MD DATE OF ADMISSION: 04/13/2019 DATE OF DISCHARGE: 04/15/2019 ADMITTING DIAGNOSES: Pelvic inflammatory disease. DISCHARGE DIAGNOSES: Pelvic inflammatory disease. PROCEDURES: 1. Removal of IUD. 2. Antibiotic therapy. PRESENTING HISTORY: Patient is a 23-year-old G4, P2, AB2 female who delivered on 01/11. She receive d an IUD roughly 2 weeks ago. She was awakened in the morning with chills, fevers, temperatures of 1 02.3. She presented to the ED for evaluation. LABORATORIES: CBC on admission showed a white count of 18.9 thousand. She had neutrophils of 17.6, hemoglobin was 13.6, hematocrit was 40.4, and platelets were 246. The white count fell the first day and the third day her white count was 6.1, hemoglobin was 11.3, hematocrit 34.8, platelets were 196. Chemistries remained within normal limits. HOSPITAL COURSE: Patient admitted at which time she had her IUD removed. She was placed on IV antib iotics of cefotetan, doxycycline as well as gentamicin. THE FIRST DAY SHE DEVELOPED A RASH AND ITCHI NG WITH THE DOXYCYCLINE, AND THE DIAGNOSIS OF DOXYCYCLINE ALLERGY WAS MADE. She was changed from dox ycycline to clindamycin. With time, her tenderness resolved. She became afebrile. Her pain complet jazmine resolved. She was discharged to home 48 hours of being afebrile. Her gentamicin was discontinue d. She was discharged on clindamycin 450 mg every 4 hours. She was instructed to followup in the inic 1 week. It was confirmed that clindamycin is compatible with . TD: 04/20/2019 09:16
--- NOTE | 2019-05-05 11:44 | PROCEDURE REPORT ---
Hospitalist Procedure Note - Procedure Note Procedure Note: Date of service 04/13/2019 following permission from the pt a speculim was placed and the cx visualized. IUD strings seen adn grasped with ring forceps. with cough the IUD was removed with out difficulty. Pt tolerated well.
== END 2019-04-15 18:50 | disposition home or self-care (01) | DRG 759 ==
LOC: ED 09:57 → MS2 17:02
PROVIDERS: ADMIT Obstetrics & Gynecology; ATTEND Obstetrics & Gynecology
PROC: 0UPD7HZ Removal of Contraceptive Device from Uterus and Cervix, Via Natural or Artificial Opening (ICD-10-PCS; principal; 2019-04-13)
DX: N73.0 Acute parametritis and pelvic cellulitis (principal); Z97.5 Presence of (intrauterine) contraceptive device
CPT/HCPCS: 36415; 74177; 76830; 76856; 80053; 80170; 81001; 81025; 83605; 83690; 85025; 87040; 87210; 87491; 87591; 87661; 93975; 96361; 96374; 96376; 99284; 99285; A9270; J1580; J7120; Q9967; 81003; 87086

== ENCOUNTER 2019-05-16 09:00 | Outpatient (CLI) | payer OTHER ==
[2019-05-16 23:53] LABS: TRICHOMONAS VAGINALIS DNA NEGATIVE (NEGATIVE)
== END 2019-05-16 23:59 | disposition home or self-care (01) ==
LOC: LAB.R 09:00
PROVIDERS: ATTEND Obstetrics & Gynecology
DX: N73.9 Female pelvic inflammatory disease, unspecified (principal)
CPT/HCPCS: 87491; 87591; 87661